=== PATIENT | male | born 1965 | race Caucasian/White ===

== ENCOUNTER 2017-12-02 08:41 | Day surgery (SDC) | payer OTHER ==
[2017-12-02] MEDS ORDERED: LIDOCAINE 2% (SDV) 5 ML INJ (10:09)
[2017-12-02] MEDS ORDERED: PROPOFOL 60 ML (10:09)
== END 2017-12-02 16:00 | disposition home or self-care (01) ==
LOC: GIL 08:41
DX: K29.30 Chronic superficial gastritis without bleeding (principal)
CPT/HCPCS: 43239; 88305; 88312

== ENCOUNTER → 2018-03-26 | Outpatient (CLI) | payer OTHER | END | disposition home or self-care (01) | LOC: HKI 09:34 | DX: M25.511 Pain in right shoulder (principal); E03.9 Hypothyroidism, unspecified; M54.5 Low back pain | CPT/HCPCS: 73030; 73030-RT ==